=== PATIENT | male | born 1940 | race Caucasian/White ===

== ENCOUNTER → 2017-08-27 | Outpatient (CLI) | payer MEDICARE, BC | END | disposition home or self-care (01) | LOC: PCVCCLINIC 11:03 | PROVIDERS: ATTEND Internal Medicine Cardiovascular Disease | DX: I25.10 Atherosclerotic heart disease of native coronary artery without angina pectoris (principal); I10 Essential (primary) hypertension; G47.33 Obstructive sleep apnea (adult) (pediatric); E11.8 Type 2 diabetes mellitus with unspecified complications; I65.23 Occlusion and stenosis of bilateral carotid arteries; E78.5 Hyperlipidemia, unspecified; Z95.1 Presence of aortocoronary bypass graft; Z79.82 Long term (current) use of aspirin; Z79.84 Long term (current) use of oral hypoglycemic drugs; Z82.49 Family history of ischemic heart disease and other diseases of the circulatory system | CPT/HCPCS: 80061; 93005; G0463 ==

== ENCOUNTER → 2018-04-08 | Outpatient (CLI) | payer MEDICARE, BC | END | disposition home or self-care (01) | LOC: PCVCIMAG 09:42 | DX: I25.10 Atherosclerotic heart disease of native coronary artery without angina pectoris (principal); E11.9 Type 2 diabetes mellitus without complications; E78.5 Hyperlipidemia, unspecified; Z95.1 Presence of aortocoronary bypass graft | CPT/HCPCS: 93325; 93351 ==

== ENCOUNTER → 2018-07-11 | Outpatient (CLI) | payer MEDICARE, BC ==
--- NOTE | 2018-07-14 10:53 | PCVCIMAG ---
APPROVED REPORT Study performed: 07/11/2018 09:31:36 EXAM: Comprehensive 2D, Doppler, and color-flow Echocardiogram Patient Location: Echo lab Room #: 2 BSA: 1.94 BP: 108/64 mmHg Rhythm: NSR Other Information Study Quality: Good Risk Factors: Cardiac Risk Factors: HTN, Hyperlipidemia Indications Atrial Fibrillation CAD Palpitations 2D Dimensions LVEF(%): 73.42 (>50%) IVSd: 8.10 (7-11mm)LVOT Diam: 21.04 (18-24mm) LVDd: 44.34 mm PWd: 8.84 (7-11mm)Ascending Ao: 29.73 (22-36mm) LVDs: 25.62 (25-40mm) Left Atrium: 33.53 (27-40mm) Aortic Root: 28.48 mm LV Single Plane 4CH: 50.74 % LV Single Plane 2CH: 57.65 %Leal's LVEF: 54.19 % Biplane EF: 56.0 % Volumes Left Atrial Volume (Systole) Single Plane 4CH: 56.05 mLSingle Plane 2CH: 38.66 mL Biplane LA Volume: 47.00 mLLA ESV Index: 24.00 mL/m2 Aortic Valve AoV Peak Garrison.: 1.40 m/s AO Peak Gr.: 7.80 mmHgLVOT Max P.47 mmHg LVOT Max V: 0.93 m/s PUNEET Vmax: 2.32 cm2 Mitral Valve E/A Ratio: 0.7 MV Decel. Time: 259.08 ms MV E Max Garrison.: 0.87 m/s MV A Garrison.: 1.22 m/s IVRT: 93.43 ms TDI E/Lateral E': 17.40E/Medial E': 12.43 Medial E' Garrison.: 0.07 m/s Lateral E' Garrison.: 0.05 m/s Pulmonary Valve PV Peak Garrison.: 1.16 m/sPV Peak Gr.: 5.41 mmHg Pulmonary Vein P Vein S: 0.63 m/sP Vein A: 0.42 m/s P Vein D: 0.41 m/sP Vein A Dur.: 76.1 msec P Vein S/D Ratio: 1.54 Tricuspid Valve TR Peak Garrison.: 2.75 m/s TR Peak Gr.: 30.35 mmHg TV Vmax: 0.67 m/sPA Pressure: 37.00 mmHg Left Ventricle The left ventricle is normal size. There is normal LV segmental wall motion. There is normal left ventricular wall thickness. Left ventricular systolic function is normal. The left ventricular ejection fraction is within the normal range. LVEF is 55-60%. Grade I - abnormal relaxation pattern. Right Ventricle The right ventricle is normal size. The right ventricular systolic function is normal. Atria The left atrium size is normal. The right atrium size is normal. Aortic Valve The aortic valve is normal in structure. No aortic regurgitation is present. There is no aortic valvular stenosis. Mitral Valve The mitral valve is normal in structure. There is no mitral valve regurgitation noted. No evidence of mitral valve stenosis. Tricuspid Valve The tricuspid valve is normal in structure. Trace to mild tricuspid regurgitation with a PA pressure of 37 mmHg. Mild pulmonary hypertension. Pulmonic Valve The pulmonary valve is normal in structure. There is no pulmonic valvular regurgitation. Great Vessels The aortic root is normal in size. The ascending aorta is normal in size. Aortic arch is not well visualized. IVC is normal in size and collapses with >50% inspiration Pericardium There is no pericardial effusion. There is no pleural effusion. <Conclusion> The left ventricle is normal size. LVEF is 55-60%. Grade I - abnormal relaxation pattern. The right ventricle is normal size. The left atrium size is normal. The aortic valve is normal in structure. There is no mitral valve regurgitation noted. Trace to mild tricuspid regurgitation with a PA pressure of 37 mmHg. Mild pulmonary hypertension. The aortic root is normal in size. There is no pericardial effusion.
== END | disposition home or self-care (01) ==
LOC: PCVCIMAG 12:12
PROVIDERS: ATTEND Internal Medicine Cardiovascular Disease
DX: I48.0 Paroxysmal atrial fibrillation (principal); I25.10 Atherosclerotic heart disease of native coronary artery without angina pectoris; E11.9 Type 2 diabetes mellitus without complications; I10 Essential (primary) hypertension; I27.20 Pulmonary hypertension, unspecified
CPT/HCPCS: 93306

== ENCOUNTER → 2018-11-04 | Outpatient (CLI) | payer MEDICARE, BC | END | disposition home or self-care (01) | LOC: PCVCCLINIC 10:54 | PROVIDERS: ATTEND Internal Medicine Cardiovascular Disease | DX: I48.0 Paroxysmal atrial fibrillation (principal); I25.10 Atherosclerotic heart disease of native coronary artery without angina pectoris; I65.23 Occlusion and stenosis of bilateral carotid arteries; I10 Essential (primary) hypertension; E11.8 Type 2 diabetes mellitus with unspecified complications; R94.31 Abnormal electrocardiogram [ECG] [EKG]; E78.5 Hyperlipidemia, unspecified; Z95.1 Presence of aortocoronary bypass graft; E07.9 Disorder of thyroid, unspecified; E78.00 Pure hypercholesterolemia, unspecified; G47.30 Sleep apnea, unspecified; Z72.89 Other problems related to lifestyle; Z79.82 Long term (current) use of aspirin | CPT/HCPCS: 80061; 93005; G0463 ==

== ENCOUNTER → 2019-02-23 | Outpatient (CLI) | payer MEDICARE, BC ==
--- NOTE | 2019-02-23 16:06 | PCVCIMAG ---
APPROVED REPORT Laterality: Bilateral Indications Stenosis Doppler Spectral Velocity Analysis PSV / EDVPSV / EDV ECA (R) 81 / 6 cm/sECA (L) 84 / 6 cm/s dICA (R) 85 / 25 cm/sdICA (L) 67 / 21 cm/s Giles (R) 92 / 26 cm/smICA (L) 67 / 26 cm/s pICA (R) 62 / 11 cm/spICA (L) 51 / 17 cm/s Bulb (R) 68 / 11 cm/sBulb (L) 77 / 18 cm/s dCCA (R) 74 / 15 cm/sdCCA (L) 93 / 18 cm/s mCCA (R) 81 / 13 cm/smCCA (L) 105 / 23 cm/s Vert (R) 38 / 8 cm/sVert (L) 50 / 14 cm/s ICA/CCA 1.24ICA/CCA 0.72 Findings The right carotid bulb has moderate calcified plaque. The right proximal internal carotid artery shows <40% stenosis. The right common carotid artery shows no significant stenosis. The right external carotid artery shows no significant stenosis. The left carotid bulb has moderate calcified plaque. The left proximal internal carotid artery shows <40% stenosis. The left common carotid artery shows no significant stenosis. The left external carotid artery shows no significant stenosis. Conclusion 1. Right internal carotid artery stenosis (<40%) 2. Left internal carotid artery stenosis (<40%) 3. Antegrade vertebral flow
== END | disposition home or self-care (01) ==
LOC: PCVCIMAG 14:19
PROVIDERS: ATTEND Internal Medicine Cardiovascular Disease
DX: I65.23 Occlusion and stenosis of bilateral carotid arteries (principal)
CPT/HCPCS: 93880

== ENCOUNTER → 2019-10-05 | Outpatient (CLI) | payer MEDICARE, BC ==
--- NOTE | 2019-10-05 16:54 | PCVCIMAG ---
APPROVED REPORT Study performed: 10/05/2019 15:12:17 EXAM: Limited 2D, Doppler, and color-flow Echocardiogram Patient Location: Echo lab Status: routine BSA: 1.91 HR: 95 bpmBP: 125/72 mmHg Rhythm: Atrial Fibrillation Other Information Study Quality: Adequate Indications Atrial Fibrillation CAD 2D Dimensions IVSd: 11.80 (7-11mm) LVDd: 40.41 mm PWd: 11.98 (7-11mm) LVDs: 28.90 (25-40mm) Left Atrium: 41.56 (27-40mm) Aortic Root: 32.61 mm LV Single Plane 4CH: 48.45 % LV Single Plane 2CH: 39.14 % Biplane EF: 44.0 % Volumes Left Atrial Volume (Systole) Single Plane 4CH: 89.92 mLSingle Plane 2CH: 96.94 mL LA ESV Index: 50.00 mL/m2 Tricuspid Valve TR Peak Garrison.: 2.88 m/s TR Peak Gr.: 33.26 mmHg Left Ventricle The left ventricle is normal size. There is normal LV segmental wall motion. Mild concentric left ventricular hypertrophy. Left ventricular systolic function is mildly decreased due to atrial fibrillation. LVEF is 45-50%. This study is not technically sufficient to allow evaluation of the LV diastolic function. Right Ventricle The right ventricle is normal size. The right ventricular systolic function is normal. Atria Left atrium is moderately dilated. The right atrium size is normal. Aortic Valve The aortic valve is normal in structure. No aortic regurgitation is present. There is no aortic valvular stenosis. Mitral Valve The mitral valve is normal in structure. Mild mitral regurgitation. No evidence of mitral valve stenosis. Tricuspid Valve The tricuspid valve is normal in structure. Mild tricuspid regurgitation with PAP of 43 mmHg. Pulmonic Valve The pulmonary valve is normal in structure. There is no pulmonic valvular regurgitation. Great Vessels The aortic root is normal in size. IVC is dilated and collapses >50% with inspiration. Pericardium There is no pericardial effusion. There is no pleural effusion. <Conclusion> The left ventricle is normal size. Mild concentric left ventricular hypertrophy. Left ventricular systolic function is mildly decreased due to atrial fibrillation. LVEF is 45-50%. This study is not technically sufficient to allow evaluation of the LV diastolic function. Left atrium is moderately dilated. The right atrium size is normal. The aortic valve is normal in structure. Mild mitral regurgitation. Mild tricuspid regurgitation with PAP of 43 mmHg. The aortic root is normal in size. There is no pericardial effusion.
== END | disposition home or self-care (01) ==
LOC: PCVCIMAG 15:00
PROVIDERS: ATTEND Internal Medicine Cardiovascular Disease
DX: I08.1 Rheumatic disorders of both mitral and tricuspid valves (principal); I48.0 Paroxysmal atrial fibrillation; I25.10 Atherosclerotic heart disease of native coronary artery without angina pectoris; I11.9 Hypertensive heart disease without heart failure; E78.5 Hyperlipidemia, unspecified; G47.33 Obstructive sleep apnea (adult) (pediatric); Z95.1 Presence of aortocoronary bypass graft; Z79.82 Long term (current) use of aspirin; Z79.899 Other long term (current) drug therapy
CPT/HCPCS: 36415; 80061; 93005; 93308; G0463

== ENCOUNTER → 2019-10-07 | Outpatient (CLI) | payer MEDICARE, BC ==
[~2019-10-07] MED LIST: REGADENOSON 0.4 MG/5 ML DISP.SYRIN. IV ONE
--- NOTE | 2019-10-07 17:06 | PCVCIMAG ---
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 Time of rest injection: 914 Date: 10/07/2019 Administration Route: IV Administration Site: Left Arm Pharmacologic Stress Pharmacologic stress test was performed by injecting Regadenoson 0.4 mg IV push over 10-15 seconds immediately followed by the intravenous injection of 33.4 mCi of Tc-99m Sestamibi. Time of stress injection: 1044 Date: 10/07/2019 Administration Route: IV Administration Site: Left Arm Gated Stress SPECT was performed 45 minutes after stress injection. The images were gated to evaluate regional wall motion and calculate left ventricular ejection fraction. Stress Test Details Stress Test: Pharmacologic stress was paired with low level exercise. Reason for pharmacologic stress test: physical limitation. HRMax Heart Rate (APMHR): 144 bpm Resting HR: 90 bpmTarget HR (85% APMHR): 122 bpm Max HR Achieved: 142 bpm % of APMHR: 98 Recovery HR: 115 bpm BP Resting BP: 153/78 mmHg Max BP: 120/78 mmHg Recovery BP: 159/76 mmHg ECG Resting ECG: Atrial Fibrillation Stress ECG: Atrial Fibrillation, RVR, Arrhythmia: PVC's Recovery ECG: Atrial Fibrillation Clinical Reason for Termination: Completed protocol Stress Symptoms: Lightheaded, Nausea Exercise duration: 4 min 00 sec Exercise capacity: 1.6 METs Symptoms resolved with caffeine. Stress ECG Conclusion ECG: Non-ischemic Study Quality Study: Good Study Data Post stress, the left ventricular ejection was 62%.. SSS: 0 SRS: 0 SDS: 0 TID = 0.76. Perfusion No evidence of stress induced ischemia or prior myocardial infarction. Wall Motion Normal left ventricular size and function with no regional wall motion abnormalities. Nuclear Conclusion No evidence of stress induced ischemia or prior myocardial infarction. Normal left ventricular size and function with no regional wall motion abnormalities. Post stress, the left ventricular ejection was 62%. No change since prior study dated September 2016. Interpreted by: Victorino Rankin MD Electronically Approved: 10/07/2019 16:13:36 <Conclusion> ECG: Non-ischemic
== END | disposition home or self-care (01) ==
LOC: PCVCIMAG 09:11
PROVIDERS: ATTEND Internal Medicine Cardiovascular Disease
DX: I48.0 Paroxysmal atrial fibrillation (principal); I25.10 Atherosclerotic heart disease of native coronary artery without angina pectoris; R06.02 Shortness of breath; I10 Essential (primary) hypertension; E11.9 Type 2 diabetes mellitus without complications; E78.00 Pure hypercholesterolemia, unspecified
CPT/HCPCS: 78452; 93017; A9500; J2785